=== PATIENT | male | born 1940 | race Caucasian/White ===

== ENCOUNTER 2017-01-19 08:51 | Emergency (ER) | payer OTHER ==
[2017-01-19 08:56] VITALS: BP 125/89; TEMP 97.2; BMI 45.4
[2017-01-19] MEDS ORDERED: DILAUDID 1 MG/ML SYRINGE IM STA (09:13)
--- NOTE | 2017-01-19 09:58 | CT ---
EXAM: CT Pelvis without contrast. HISTORY: Initial presentation for right hip and low back pain following a fall. COMPARISON: None available. TECHNIQUE: Multiple axial images of the pelvis were obtained without intravenous contrast. Images were reformatted in the coronal and sagittal plane. FINDINGS: Please note that evaluation of the pelvic soft tissue structures is limited due to lack o f intravenous contrast. Bone mineralization is normal. No fracture or dislocation identified. 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 Lower lumbar degenerative changes are incompletely imaged. Refer to lum bar spine CT report from the same day for details. Adjacent soft tissues are without acute abnormal ity. Atherosclerotic calcifications are present. IMPRESSION: No fracture or dislocation.
--- NOTE | 2017-01-19 10:03 | CT ---
EXAM: CT lumbar spine without contrast. HISTORY: Fall with back pain and reported history of lumbar surgery. COMPARISON: CT lumbar spine 04/04/2016 TECHNIQUE: Serial axial images of the spine were obtained from the lower thoracic spine through the pelvis without contrast. These were viewed in multiple planes. FINDINGS: Vertebral bodies demonstrate no acute compression fracture. No definitive subluxation is identified. There is multilevel disc space narrowing with anterior and posterior disc osteophytes. There is scattered facet arthropathy identified. The posterior and transverse processes are unrem arkable. A right hemilaminectomy changes are noted at L4 and L5. L1-L2: There is a small broad-based disc bulge and facet arthropathy. There is no significant centr al or neural foraminal narrowing. L2-L3: Posterior disc osteophyte and facet arthropathy with broad-based disc bulge contributing to b ilateral mild neural foraminal narrowing. L3-L4: There is a broad-based disc bulge and scattered facet arthropathy with mild right neural fora gianna narrowing. L4-L5: There is broad-based disc bulge and facet arthropathy contributing to moderate right neural f oraminal narrowing. L5-S1: There is a broad-based disc bulge and facet arthropathy contributing to bilateral moderate to severe neural foraminal narrowing. Limited views of the soft tissues are unremarkable. IMPRESSION: 1. No acute compression fracture or subluxation. 2. Multilevel degenerative disease and postsurgical changes with a level by level analysis as above . If further evaluation is clinically indicated, MRI may be obtained.
--- NOTE | 2017-01-19 11:24 | ED.PDOC ---
General ED Provider: Dr. ARMAAN CERDA Chief Complaint: Fall Stated Complaint: back and hip pain Time Seen by Physician: 09:00 Mode of Arrival: Walk-In Information Source: Patient Exam Limitations: No limitations Primary Care Provider: SUKHWINDER STOUT Nursing and Triage Documentation Reviewed and Agree: Yes Musculoskeletal Complaint Exam - Back Pain Complaint/Exam Mechanism of Injury: Reports: No known trauma Onset/Duration: this am Symptoms Are: Still present Initial Severity: Mild Current Severity: Mild Location: Reports: Discrete Character: Reports: Dull, Aching Alleviating: Reports: None Associated Signs and Symptoms: Denies: Swelling, Redness, Bruising, Fever, Weakness, Numbness, Tingling, Abdominal pain, Flank pain, Bladder incontinence, Bowel incontinence, Weight loss, Pain with weight bearing Related History: Reports: Similar episode Review of Systems - Review Of Systems Constitutional: Reports: No symptoms Eyes: Reports: No symptoms Ears, Nose, Mouth, Throat: Reports: No symptoms Respiratory: Reports: No symptoms Cardiac: Reports: No symptoms GI: Reports: No symptoms : Reports: No symptoms Musculoskeletal: Reports: Back pain Skin: Reports: No symptoms Neurological: Reports: No symptoms Endocrine: Reports: No symptoms Hematologic/Lymphatic: Reports: No symptoms All Other Systems: Reviewed and Negative Past Medical History - Past Medical History Endocrine: Reports: None Cardiovascular: Reports: OK, Hypertension Respiratory: Reports: None Hematological: Reports: None Gastrointestinal: Reports: GERD Genitourinary: Reports: None Neuro/Psych: Reports: TIA (states was spine disease not a tia) Musculoskeletal: Reports: Arthritis, Back Pain Cancer: Reports: None Other Pertinent Past Medical History: sleep apnea - Surgical History General Surgical History: Reports: Orthopedic (right arm bilateral knees), Back Surgery (back and neck surgery) - Family History Family History: Reports: Unknown - Social History Smoking Status: Never smoker Hx Substance Use: No Alcohol Screening: None Physical Exam - Physical Exam Appearance: Well-appearing, No pain distress, Well-nourished Eyes: ADEBAYO, EOMI, Conjunctiva clear ENT: Ears normal, Nose normal, Oropharynx normal Respiratory: Airway patent, Breath sounds clear, Breath sounds equal, Respirations nonlabored Cardiovascular: RRR, Pulses normal, No rub, No murmur GI/: Soft, Nontender, No masses, Bowel sounds normal, No Organomegaly Musculoskeletal: Normal strength, ROM intact, No edema, No calf tenderness Skin: Warm, Dry, Normal color Neurological: Sensation intact, Motor intact, Reflexes intact, Cranial nerves intact, Alert, Oriented Psychiatric: Affect appropriate, Mood appropriate Interpretation - Radiology Interpretation Radiology Interpretation By: Radiologist Radiology Results: No acute changes Critical Care Note - Critical Care Note Total Time (mins): 0 Course - Course Orders, Labs, Meds: Orders Category Date Time Status Hydromorphone HCl [Dilaudid 1 mg/ml Syringe] MEDS 01/19/17 09:13 Discontinued 0.5 mg IM ONCE STA CT LUMBAR SPINE W/O CONTRAST Stat RADS 01/19/17 09:[address] PELVIS W/O CONTRAST Stat RADS 01/19/17 09:12 Completed Medications Discontinued Medications Generic Name Dose Route Start Last Admin Trade Name Barbra PRN Reason Stop Dose Admin Hydromorphone HCl 0.5 mg 01/19/17 09:13 01/19/17 09:20 Dilaudid 1 Mg/Ml Syringe IM 01/19/17 09:14 0.5 mg ONCE STA Administration Vital Signs: Temp Pulse Resp BP Pulse Ox 01/19/17 08:53 97.2 F L 87 20 125/89 94 L Departure - Departure Time of Disposition: 11:23 Disposition: HOME SELF-CARE Discharge Problem: Back pain Qualifiers: Back pain location: low back pain Back pain laterality: unspecified Instructions: Acute Low Back Pain (ED) Condition: Good Pt referred to PMD for follow-up: No Additional Instructions: Please call your Family Physician as soon as possible to schedule a follow-up appointment. Allergies/Adverse Reactions: Allergies No Known Allergies Allergy (Unverified 01/19/17 08:57) Home Medications: Ambulatory Orders Losartan/Hydrochlorothiazide [Losartan-Hctz 100-25 mg Tab] 1 tab PO DAILY Rivaroxaban [Xarelto] 20 mg PO BEDTIME 08/15/13 Sotalol HCl [Sotalol] 40 mg PO DAILY 08/15/13 Disposition Discussed With: Patient
== END 2017-01-19 12:00 | disposition home or self-care (01) ==
LOC: ED 08:51
DX: M54.5 Low back pain (principal); M25.559 Pain in unspecified hip; W19.XXXA Unspecified fall, initial encounter
CPT/HCPCS: 96372; 99283

== ENCOUNTER 2017-11-02 10:42 | Inpatient (IN) | payer OTHER ==
[2017-11-02] MEDS ORDERED: MORPHINE 4 MG/ML VIAL IVP PRN (11:04)
[2017-11-02] MEDS ORDERED: TYLENOL PO PRN (11:04)
[2017-11-02] MEDS ORDERED: VISTARIL INJ IM PRN (11:04)
[2017-11-02] MEDS ORDERED: ATROPINE SULFATE PFS IVP PRN (11:04)
[2017-11-02] MEDS ORDERED: NITROSTAT SL PRN (11:04)
[2017-11-02] MEDS: XOPENEX 1.25 MG NEB SCH ×3 (11:28→22:48)
[2017-11-02] MEDS ORDERED: SODIUM CHLORIDE 1,000 ML IV SCH (11:30)
[2017-11-02 11:42] VITALS: BMI 47.7
[2017-11-02] MEDS: ZITHROMAX PO SCH (12:03)
[2017-11-02] MEDS: ROCEPHIN 1 GM in SODIUM CHLORIDE 50 ML IV SCH (12:04)
[2017-11-02] MEDS: SOLU-CORTEF 250 MG IVP SCH ×3 (12:04→23:57)
--- NOTE | 2017-11-02 14:39 | DI ---
EXAM: CHEST FRONTAL AND LATERAL VIEWS HISTORY: Shortness of breath. COMPARISON: 08/15/2013 FINDINGS: Prominent heart size is stable. There is at least mild atherosclerotic disease. No acute infiltrates are seen. No vascular congestion. There is no consolidation, visible pleural fluid or p neumothorax. Bones reveal no acute fracture. IMPRESSION: No acute cardiopulmonary process.
[2017-11-02] MEDS: TAMIFLU PO SCH ×2 (15:05→20:57)
[2017-11-02] MEDS: XARELTO PO SCH (17:01)
[2017-11-02] MEDS: HUMULIN R SUBCUT PRN ×2 (17:37→21:40)
[2017-11-02] MEDS ORDERED: NON-FORMULARY MEDICATION (Rivaroxaban [Xarelto] 20 MG) PO SCH (21:00)
[2017-11-03] MEDS: XOPENEX 1.25 MG NEB SCH ×4 (05:02→23:45)
[2017-11-03] MEDS: SOLU-CORTEF 250 MG IVP SCH ×3 (05:25→21:32)
[2017-11-03] MEDS ORDERED: NON-FORMULARY MEDICATION (Losartan/Hydrochlorothiazide [Losartan-Hctz 100-25 Mg Tab] 1 TAB PO SCH (09:00)
[2017-11-03] MEDS: BETAPACE PO SCH (10:09)
[2017-11-03] MEDS: HYDROCHLOROTHIAZIDE PO SCH (10:11)
[2017-11-03] MEDS: COZAAR PO SCH (10:11)
[2017-11-03] MEDS: TAMIFLU PO SCH ×2 (10:12→21:33)
[2017-11-03] MEDS: ZITHROMAX PO SCH (10:12)
[2017-11-03] MEDS: ASPIRIN EC PO SCH (10:13)
[2017-11-03] MEDS: ROCEPHIN 1 GM in SODIUM CHLORIDE 50 ML IV SCH (10:13)
--- NOTE | 2017-11-03 10:26 | HP ---
DATE OF SERVICE: 11/02/17 HISTORY OF PRESENT ILLNESS: This is a 77-year-old male who started coughing/wheezing yesterday. He was aching all over last night, hurting all over. Short of breath since yesterday. He states he was coughing 2 to 3 days before. PAST MEDICAL HISTORY: Diabetes mellitus type 2 Right sciatica Atrial fibrillation Obesity Metabolic syndrome LVH/hypertension Dyslipidemia Sleep apnea PAST SURGICAL HISTORY: Bilateral total knee replacement, Dr. Arias Stents Colonoscopy - scheduled 11/19/17 for appointment REVIEW OF SYSTEMS: CONSTITUTIONAL: Positive for fever and fatigue. HEENT: Sinus drainage. No sore throat. RESPIRATORY: Cough and congestion. CARDIOVASCULAR: Pain with breathing. Shortness of breath. No atypical chest pain for coronary artery disease. No angina, CHF symptoms, or palpitations. GASTROINTESTINAL: No melena or abdominal pain. No GERD. GENITOURINARY: No hematuria, no prostatism, no polyuria. BROWN STOCK WASHER: No blackout, no dizziness, no headache, no double vision. MUSCULOSKELETAL: Osteoarthritis pain. ENDOCRINE: Positive for weight gain of 2 lbs. SKIN: Not dry, no rash. PSYCHIATRIC: Not anxious, no depression, no suicidal thoughts, no homicidal thoughts. SOCIAL HISTORY: . Nonsmoker. No alcohol use. Three children. Occupation is a travel counselor. FAMILY HISTORY: Father . Mother . No brothers. One sister. MEDICATIONS: Losartan/HCTZ 100-25 mg Sotalol 80 mg 0.5 tablet 1/2 by oral route one time per day Cortisone cream apply thin layer to affected area topically two times per day Xarelto 20 mg one tablet p.o. once daily with the evening meal Tylenol 325 mg take 2 tablets p.o. every 12 hours as needed p.r.n. Vitamins one time per day Fish Oil Garlic ALLERGIES: TEQUIN, PRAVACHOL, CRESTOR, LIPITOR, VYTORIN, NIASPAN, SIMVASTATIN PHYSICAL EXAMINATION: V/S: Pulse 60, BP 120/70, temperature 100.2, 02 sat 95%, weight 303.8 lbs. Height 5'6", BMI 49.1. GENERAL APPEARANCE: Oriented times three. HEENT: Yellow drainage. NECK: No JVP, no bruits. RESPIRATORY: Lungs have decreased breath sounds, inspiratory and expiratory wheezing, CARDIOVASCULAR: Irregular heart rate. S1, S2, no S3, no murmurs. No cyanosis, clubbing. No ascites. GI/ABDOMEN: No tenderness. Bowel sounds are active. EXTREMITIES: Trace edema, pulses +1, equal. BROWN STOCK WASHER: Deep tendon reflexes, sensory, motor and gait all normal. RECTAL/PROSTATE: .Prostate 04/23 (0.7). Colonoscopy 2009 Dr. Verde. LABS: White count 6.06, hemoglobin 15.5, hematocrit 45.8, platelets 176. Sodium 137, potassium 4.1, BUN 9, creatinine 0.99, GFR 74, AST 48, ALT 39, total protein 7.6 , albumin 3.5. Rapid flu B is positive. Chest x-ray shows no acute process. ASSESSMENT: 1. ACUTE PNEUMONITIS 2. SHORTNESS OF BREATH 3. PLEURITIC PAIN ON LEFT. 4. DIABETES MELLITUS TYPE 2 5. RIGHT SCIATICA 6. ATRIAL FIBRILLATION 7. OBESITY 8. BILATERAL TOTAL KNEE REPLACEMENT, DR. ARIAS 9. METABOLIC SYNDROME 10. CAD WITH STENTS 11. LVH/HYPERTENSION 12. DYSLIPIDEMIA 13. SLEEP APNEA PLAN: 1. Admit 2. Routine telemetry orders 3. NS @ 75 cc/hr times one bag 4. Tylenol for fever 650 mg .q.4h 5. CBC, CMP now and daily 6. Chest x-ray now 7. Rapid flu A & B 8. Rocephin 1 gm IV daily 9. Zithromax 500 mg p.o. daily times three days 10. Solu-Cortef 125 mg q.6h IV scheduled 11. Xopenex q.6h scheduled 12. Sliding scale coverage 13. 02 1-2L p.r.n. 14. Continue home medications TIME SPENT: More than 70 minutes. MTDD
--- NOTE | 2017-11-03 11:40 | PCM.PROG ---
Attending Provider: ATTENDING PROVIDER: Dr. SUKHWINDER STOUT This patient is seen with Allyson Newby, Nurse Practitioner. DATE OF SERVICE: 11/03/17 SUBJECTIVE: This 77 year old WHITE/ M was hospitalized 11/02/17. The patient is lying in bed, alert. He states he did not sleep very well last night. Wheezing has improved. REVIEW OF SYSTEMS: CONSTITUTIONAL: No night sweats. No fatigue, malaise, lethargy. No fever or chills. HEENT: Eyes: No visual changes. No eye pain. No eye discharge. ENT: No runny nose. No epistaxis. No sinus pain. No odynophagia. No congestion. RESPIRATORY: Cough and wheezing improving. No hemoptysis. No shortness of breath. CARDIOVASCULAR: No angina symptoms. No CHF symptoms. No atypical chest pain for CAD. No palpitations. No orthopnea.. GASTROINTESTINAL: No abdominal pain. No nausea or vomiting. No diarrhea or constipation. No hematemesis. No hematochezia. GENITOURINARY: No urgency. No frequency. No dysuria. No hematuria. No obstructive symptoms. No discharge. No pain. No significant abnormal bleeding. MUSCULOSKELETAL: No musculoskeletal pain; no joint swelling. NEUROLOGICAL: Awake, alert, oriented to time, place and person. No headache. No neck pain. No syncope. No seizures. No dizziness. PSYCHIATRIC: Not anxious. No depression. No suicidal thoughts. No homicidal thoughts. SKIN: No rash. No lesions. No wounds. ENDOCRINE: No unexplained weight loss. No weight gain. HEMATOLOGIC/LYMPHATIC: No anemia. No purpura. No petechiae. No prolonged or excessive bleeding. No palpable lymph nodes. PHYSICAL EXAMINATION: GENERAL: The patient is awake, alert and oriented, lying in bed in no distress. VITAL SIGNS: Temperature 98.4 F, Pulse 82, Respiratory Rate 16, BP 150/90, Pulse Ox 97% HEENT: Head normocephalic, atraumatic. Eyes: Extraocular muscles are intact. Pupils are equal, round and reactive to light and accommodation. Ears: No lesions. Nose appeared normal. Throat: No exudate or erythema. NECK: Supple. No JVD, no carotid bruit. No lymphadenopathy or thyromegaly. LUNGS: Diminished breath sounds bilaterally, improving bilateral wheeze. Percussion note normal. Chest symmetrical. HEART: Irregular heart rate. S1, S2, no S3. No murmurs. No cyanosis or clubbing. No ascites. Pulses: Dorsalis pedis and posterior tibial pulses +1 to +2 both sides. ABDOMEN: Soft. Non-tender. Bowel sounds active. No CVA tenderness. No mass felt. EXTREMITIES: No edema. Full range of motion of all extremities, equal. NEUROLOGIC: No focal deficit. Cranial nerves II through XII are grossly intact. No headache, no double vision or headache. SKIN: Not dry. Intact. Turgor-normal. LYMPHATIC: No palpable lymph nodes/no lymphedema. MUSCULOSKELETAL: Normal joints with no swelling. Muscle tone is normal. LAB REVIEW: 11/03/17 04:30 11/03/17 04:30 11/03/17 04:30: Sodium 137, Potassium 4.8, Chloride 102, Carbon Dioxide 22 L, Anion Gap 17.8, BUN 11, Creatinine 0.93, Estimated GFR (MDRD) 79.00, BUN/ Creatinine Ratio 11.82, Glucose 138 H, Calcium 9.0, Total Bilirubin 0.6, AST 73 H D, ALT 43, Alkaline Phosphatase 42 L, Total Protein 8.4 H, Albumin 3.3 L, Globulin 5.1, Albumin/Globulin Ratio 0.65 11/03/17 04:30: WBC 4.88, RBC 4.91, Hgb 15.3, Hct 45.2, MCV 92.1, MCH 31.2 H, MCHC 33.8, RDW Coeff of Mariajose 12.9, Plt Count 169, Immature Gran % (Auto) 0.4, Neut % (Auto) 73.4, Lymph % (Auto) 17.4, [place] % (Auto) 8.6, Eos % (Auto) 0.0, Baso % (Auto) 0.2, Immature Gran # (Auto) 0.0, Neut # (Auto) 3.6, Lymph # (Auto ) 0.9, [place] # (Auto) 0.4, Eos # (Auto) 0.0, Baso # (Auto) 0.0 11/02/17 19:24: Total Creatine Kinase 401, CK-MB (CK-2) 1.6, CK-MB (CK-2) % 0.70004, Troponin I < 0.0100 11/02/17 15:00: Urine Color Yellow, Urine Clarity Clear, Urine pH 6.0, Ur Specific [place] 1.010, Urine Protein Negative, Urine Glucose (UA) Negative, Urine Ketones Negative, Urine Blood Trace-intact, Urine Nitrite Negative, Urine Bilirubin Negative, Urine Urobilinogen 0.2, Ur Leukocyte Esterase Negative, Urine Microscopic RBC 0-2, Ur Squamous Epith Cells Not present 11/02/17 12:15: Influ A Molecular Assay Negative by naat, Influ B Molecular Assay Positive by naat H 11/02/17 11:25: Total Creatine Kinase 307, CK-MB (CK-2) 1.3, CK-MB (CK-2) % 0.43090, Troponin I < 0.0100 11/02/17 11:25: Sodium 137, Potassium 4.1, Chloride 101, Carbon Dioxide 25, Anion Gap 15.1, BUN 9, Creatinine 0.99, Estimated GFR (MDRD) 74.00, BUN/ Creatinine Ratio 9.09, Glucose 98, Calcium 9.5, Total Bilirubin 0.9, AST 48 H, ALT 39, Alkaline Phosphatase 50 L, Total Protein 7.6, Albumin 3.5, Globulin 4.1 , Albumin/Globulin Ratio 0.85 11/02/17 11:25: WBC 6.06, RBC 4.95, Hgb 15.5, Hct 45.8, MCV 92.5, MCH 31.3 H, MCHC 33.8, RDW Coeff of Mariajose 13.0, Plt Count 176, Immature Gran % (Auto) 0.5, Neut % (Auto) 59.1, Lymph % (Auto) 17.2, [place] % (Auto) 20.1 H, Eos % (Auto) 1.8 , Baso % (Auto) 1.3, Immature Gran # (Auto) 0.0, Neut # (Auto) 3.6, Lymph # ( Auto) 1.0, [place] # (Auto) 1.2, Eos # (Auto) 0.1, Baso # (Auto) 0.1 ASSESSMENT: Please see below. 1. Flu B 2. Acute bronchitis 3. Shortness of breath improved 4. Pleuritic pain PLAN: 1. Decrease Solu-Cortef to q.8hr 2. Ativan 1 mg at bedtime 3. Tussionex one teaspoon b.i.d. p.r.n. 4. Continue Xopenex, Tamiflu, Zithromax and Rocephin Plan and coordination of the patient's care discussed in the presence of Product Scientist and nurse. CONDITION: Stable SCRIBED BY: MAGDI COFFMAN Distributing Clerk scribed while in presence of service performed by Dr. Stout/Allyson Newby APRN on 11/03/17 ([id number])
[2017-11-03] MEDS: HUMULIN R SUBCUT PRN ×2 (12:21→21:33)
[2017-11-03] MEDS: XARELTO PO SCH (17:31)
[2017-11-03] MEDS: ATIVAN PO SCH (21:32)
[2017-11-04] MEDS: XOPENEX 1.25 MG NEB SCH ×3 (05:00→17:04)
[2017-11-04] MEDS: HUMULIN R SUBCUT PRN ×2 (05:35→10:48)
[2017-11-04] MEDS: SOLU-CORTEF 250 MG IVP SCH ×3 (05:35→21:28)
[2017-11-04] MEDS: ROCEPHIN 1 GM in SODIUM CHLORIDE 50 ML IV SCH (09:10)
[2017-11-04] MEDS: ASPIRIN EC PO SCH (09:11)
[2017-11-04] MEDS: TAMIFLU PO SCH ×2 (09:11→21:28)
[2017-11-04] MEDS: HYDROCHLOROTHIAZIDE PO SCH (09:11)
[2017-11-04] MEDS: COZAAR PO SCH (09:11)
[2017-11-04] MEDS: ZITHROMAX PO SCH (09:11)
[2017-11-04] MEDS: BETAPACE PO SCH (09:11)
[2017-11-04] MEDS: XARELTO PO SCH (17:43)
[2017-11-04] MEDS: ATIVAN PO SCH (21:28)
[2017-11-04] MEDS: TUSSIONEX PO PRN (21:33)
[2017-11-05] MEDS: SOLU-CORTEF 250 MG IVP SCH ×3 (04:08→20:15)
[2017-11-05] MEDS: XOPENEX 1.25 MG NEB SCH ×5 (06:00→23:30)
[2017-11-05] MEDS: ASPIRIN EC PO SCH (08:26)
[2017-11-05] MEDS: ROCEPHIN 1 GM in SODIUM CHLORIDE 50 ML IV SCH (08:26)
[2017-11-05] MEDS: HYDROCHLOROTHIAZIDE PO SCH (08:26)
[2017-11-05] MEDS: COZAAR PO SCH (08:27)
[2017-11-05] MEDS: TAMIFLU PO SCH ×2 (08:27→20:16)
[2017-11-05] MEDS: BETAPACE PO SCH (08:27)
[2017-11-05] MEDS: HUMULIN R SUBCUT PRN ×2 (11:28→20:16)
[2017-11-05] MEDS: XARELTO PO SCH (16:38)
[2017-11-05] MEDS: ATIVAN PO SCH (20:16)
[2017-11-05] MEDS: KEFLEX PO SCH (20:16)
[2017-11-05] MEDS: TUSSIONEX PO PRN (20:18)
[2017-11-06] MEDS: SOLU-CORTEF 250 MG IVP SCH ×2 (04:32→13:22)
[2017-11-06] MEDS: XOPENEX 1.25 MG NEB SCH ×2 (05:35→12:49)
[2017-11-06] MEDS: KEFLEX PO SCH (09:34)
[2017-11-06] MEDS: COZAAR PO SCH (09:34)
[2017-11-06] MEDS: BETAPACE PO SCH (09:34)
[2017-11-06] MEDS: HYDROCHLOROTHIAZIDE PO SCH (09:35)
[2017-11-06] MEDS: ASPIRIN EC PO SCH (09:35)
[2017-11-06] MEDS: TAMIFLU PO SCH (09:35)
[2017-11-06] MEDS ORDERED: K-DUR PO STA ×2 (10:08→13:49)
[2017-11-06 10:19] VITALS: BP 147/77; TEMP 97.6
--- NOTE | 2017-11-06 11:20 | PN ---
DATE OF SERVICE: 11/04/17 SUBJECTIVE: 77 year old white male hospitalized with acute pneumonitis/bronchitis, Influenza B positive. The patient's condition seems to be improving. He is coughing much less. Strength is coming back but still weak and mildly short of breath. Pleuritic pain has subsided. The is in the room. REVIEW OF SYSTEMS: CONSTITUTIONAL: No night sweats. No fatigue, malaise, lethargy. No fever or chills. HEENT: Eyes: No visual changes. No eye pain. No eye discharge. ENT: No runny nose. No epistaxis. No sinus pain. No sore throat. No odynophagia. No congestion. RESPIRATORY: No cough, no congestion. No hemoptysis. Mild shortness of breath. CARDIOVASCULAR: No angina symptoms. No CHF symptoms. No atypical chest pain for CAD. No palpitations. No orthopnea. No PND. GASTROINTESTINAL: No abdominal pain. No nausea or vomiting. No diarrhea or constipation. No hematemesis. No hematochezia. Appetite has improved. GENITOURINARY: No urgency. No frequency. No dysuria. No hematuria. No obstructive symptoms. No discharge. No pain. No significant abnormal bleeding. MUSCULOSKELETAL: No musculoskeletal pain; no joint swelling. NEUROLOGICAL: No headache. No neck pain. No syncope. No seizures. No dizziness. PSYCHIATRIC: Not anxious. No depression. No suicidal thoughts. No homicidal thoughts. SKIN: No rash. No lesions. No wounds. ENDOCRINE: No unexplained weight loss. No weight gain. HEMATOLOGIC/LYMPHATIC: No anemia. No purpura. No petechiae. No prolonged or excessive bleeding. No palpable lymph nodes. PHYSICAL EXAMINATION: VITAL SIGNS: Temperature 97.5, pulse 74, respiratory rate 14, blood pressure 120/80 and pulse ox 99%. HEENT: Head normocephalic, atraumatic. Eyes: Extraocular muscles are intact. Pupils are equal, round and reactive to light and accommodation. Ears: No lesions. Nose appeared normal. Throat: No exudate or erythema. NECK: Supple. No JVD, no carotid bruit. No lymphadenopathy or thyromegaly. LUNGS: Decreased breath sounds with mild wheeze. Clear to auscultation. Percussion note normal. Chest symmetrical. HEART: S1, S2, no S3. No murmurs. No cyanosis or clubbing. No ascites. Pulses: Dorsalis pedis and posterior tibial pulses +1 to +2 both sides. ABDOMEN: Soft. Nontender. Bowel sounds active. No CVA tenderness. No mass felt. EXTREMITIES: No edema. Full range of motion of all extremities, equal. NEUROLOGIC: No focal deficit. Cranial nerves II through XII are grossly intact. No headache, no double vision or headache. SKIN: Not dry. Intact. Turgor - normal. LYMPHATIC: No palpable lymph nodes/no lymphedema. MUSCULOSKELETAL: Normal joints with no swelling. Muscle tone is normal. LABS: Hgb 14.8, hct 43, WBC 11,000 normal differential. ASSESSMENT: 1. Pneumonitis/bronchitis seems to be resolving 2. Influenza B seems to be under control 3. Pleuritic pain subsided 4. Coronary artery disease with stable cardiovascular status. PLAN: 1. Continue antibiotics, steroids and NEBS treatment 2. Encourage the patient to be up and about CONDITION: Improving TIME SPENT: More than 30 minutes. Plan and coordination of the patient's care discussed in the presence of nurse. ZHEN
--- NOTE | 2017-11-06 11:27 | PN ---
DATE OF SERVICE: 11/05/17 SUBJECTIVE: 77 year old white male hospitalized with acute pneumonitis/bronchitis and influenza B positive and with pleuritic pain. The patient's overall health status has improved. REVIEW OF SYSTEMS: CONSTITUTIONAL: No night sweats. Mild fatigue and weakness. No fever or chills. HEENT: Eyes: No visual changes. No eye pain. No eye discharge. ENT: No runny nose. No epistaxis. No sinus pain. No sore throat. No odynophagia. No congestion. RESPIRATORY: No cough, no congestion. No hemoptysis. No shortness of breath. CARDIOVASCULAR: No angina symptoms. No CHF symptoms. No atypical chest pain for CAD. No palpitations. No orthopnea. GASTROINTESTINAL: No abdominal pain. No nausea or vomiting. No diarrhea or constipation. No hematemesis. No hematochezia. GENITOURINARY: No urgency. No frequency. No dysuria. No hematuria. No obstructive symptoms. No discharge. No pain. No significant abnormal bleeding. MUSCULOSKELETAL: No musculoskeletal pain; no joint swelling. NEUROLOGICAL: No headache. No neck pain. No syncope. No seizures. No dizziness. PSYCHIATRIC: Not anxious. No depression. No suicidal thoughts. No homicidal thoughts. SKIN: No rash. No lesions. No wounds. ENDOCRINE: No unexplained weight loss. No weight gain. HEMATOLOGIC/LYMPHATIC: No anemia. No purpura. No petechiae. No prolonged or excessive bleeding. No palpable lymph nodes. PHYSICAL EXAMINATION: VITAL SIGNS: Temperature 97.5, pulse 74, respiratory rate 14, blood pressure 120/80 and pulse ox 99%. HEENT: Head normocephalic, atraumatic. Eyes: Extraocular muscles are intact. Pupils are equal, round and reactive to light and accommodation. Ears: No lesions. Nose appeared normal. Throat: No exudate or erythema. NECK: Supple. No JVD, no carotid bruit. No lymphadenopathy or thyromegaly. LUNGS: Decreased breath sounds with more air entry. Clear to auscultation. Percussion note normal. Chest symmetrical. HEART: S1, S2, no S3. No murmurs. No cyanosis or clubbing. No ascites. Pulses: Dorsalis pedis and posterior tibial pulses +1 to +2 both sides. Increased Ap diameter from middle of the chest. ABDOMEN: Soft. Nontender. Bowel sounds active. No CVA tenderness. No mass felt. EXTREMITIES: No edema. Full range of motion of all extremities, equal. NEUROLOGIC: No focal deficit. Cranial nerves II through XII are grossly intact. No headache, no double vision or headache. SKIN: Not dry. Intact. Turgor - normal. LYMPHATIC: No palpable lymph nodes/no lymphedema. MUSCULOSKELETAL: Normal joints with no swelling. Muscle tone is normal. LABS: Creatinine 0.8, BUN 17, potassium 3.6, glucose 130. ASSESSMENT: 1. Pneumonitis 2. Influenza B 3. Dehydration 4. Pleuritic pain PLAN: 1. The patient is up and about 2. Continue antibiotics, steroids and NEBS treatment CONDITION: Improved TIME SPENT: More than 30 minutes. Plan and coordination of the patient's care discussed in the presence of nurse. ZHEN
--- NOTE | 2017-11-06 11:40 | CM.DICTOOL ---
ADMISSION: 11/02/17 10:42 DISCHARGE: 11/06/17 FINAL DIAGNOSIS INFLUENZA B BRONCHITIS - IMPROVED/RESOLVING PLEURITIC PAIN, LEFT - IMPROVED/RESOLVING PNEUMONITIS - IMPROVED/RESOLVING HISTORY OF: HYPERTENSION ATRIAL FIBRILLATION, ON XARELTO DYSLIPIDEMIA DM, TYPE 2 OBESITY METABOLIC SYNDROME CAD WITH STENT APPLICATION SLEEP APNEA, C-PAP S/P BILATERAL KNEE REPLACEMENT DATES UNKNOWN S/P CARDIAC STENTS DATE UNKNOWN RIGHT SCIATICA LAST VITALS Temp Pulse Resp BP Pulse Ox 97.6 F 98 H 20 147/77 H 97 11/06/17 10:00 11/06/17 10:00 11/06/17 10:00 11/06/17 10:00 11/06/17 10:00 TAKE THESE MEDICATIONS AT HOME Acetaminophen (Tylenol) 650 mg PO Q4H PRN PRN Reason: Headache Cephalexin (Keflex) 500 mg PO TID [facility] X 7 DAYS Last Admin: 11/06/17 09:34 Dose: 500 mg Hydrochlorothiazide (Hydrochlorothiazide) 25 mg PO DAILY [facility] Last Admin: 11/06/17 09:35 Dose: 25 mg Lorazepam (Ativan) 1 mg PO BEDTIME [facility] Last Admin: 11/05/17 20:16 Dose: 1 mg Losartan Potassium (Cozaar) 100 mg PO DAILY [facility] Last Admin: 11/06/17 09:34 Dose: 100 mg Oseltamivir Phosphate (Tamiflu) 75 mg PO Q12HR [facility] Stop: 11/06/17 21:01 Last Admin: 11/06/17 09:35 Dose: 75 mg Rivaroxaban (Xarelto) 20 mg PO QPM [facility] Last Admin: 11/05/17 16:38 Dose: 20 mg Sotalol HCl (Betapace) 40 mg PO DAILY [facility] Last Admin: 11/06/17 09:34 Dose: 40 mg ATIVAN 1MG AT BEDTIME ALBUTEROL NEBS 1 TREATMENT QID TESSALON PERLES 200MG TAKE 1 PO TID PRN X 7 DAYS PREDNISONE 10MG TAKE 1 PO BID X 5 DAYS,THEN 1/2 TAB BID X 5 DAYS ALLERGIES No Known Allergies Allergy (Unverified 01/19/17 08:57) DISCONTINUED MEDICATIONS: NONE NEW PRESCRIPTIONS: NEW MEDICATIONS: 1. TAMIFLU 75MG TAKE 1 TABLET 2 TIMES A DAY FOR 3 DAYS 2. ALBUTEROL 0.083% TAKE 1 NEBULIZER TREATMENT 4 TIMES A DAY. 3.TESSALON PERLES 200MG TAKE 1 CAPSULE 3 TIMES A DAY NEEDED FOR COUGH. 4. PREDNISONE 10MG TAKE 1 TABLET 2 TIMES A DAY FOR 5 DAYS THEN 1/2 TABLET 2 TIMES A DAY FOR 5 DAYS. TAKE WITH FOOD. 5. KEFLEX 500MG TAKE 1 CAPSULE TID FOR 7 DAYS. TAKE UNTIL ALL GONE. 6. ATIVAN 1MG TAKE 1 TABLET AT BEDTIME SMOKING: N/A DISEASE SPECIFIC EDUCATION: FLU AND PRECAUTIONS BRONCHITIS HOME MEDICATIONS ANTIBIOTIC THERAPY STEROID THERAPY NEBULIZER THERAPY DIET ACTIVITY LAB REVIEW: 11/06/17 04:45 11/06/17 04:45 11/06/17 04:45: Sodium 140, Potassium 3.0 L, Chloride 101, Carbon Dioxide 25, Anion Gap 17.0, BUN 18, Creatinine 0.79, Estimated GFR (MDRD) 96.00, BUN/ Creatinine Ratio 22.78, Glucose 127 H, Calcium 8.4, Total Bilirubin 0.6, AST 53 H, ALT 49, Alkaline Phosphatase 37 L, Total Protein 6.1, Albumin 2.9 L, Globulin 3.2, Albumin/Globulin Ratio 0.91 11/06/17 04:45: WBC 8.10, RBC 4.79, Hgb 14.9, Hct 45.0, MCV 93.9, MCH 31.1 H, MCHC 33.1, RDW Coeff of Mariajose 13.5, Plt Count 175, Neutrophils % (Manual) 76.0 H, Band Neutrophils % 1.0, Lymphocytes % (Manual) 16.0, Monocytes % (Manual) 2.0, Reactive Lymphocytes 5.0, Anisocytosis Not present PLAN: DISCHARGE HOME TODAY. 11/06/17 CONTINUE HOME MEDICATIONS PER NURSING SHEET. NEW MEDICATIONS: 1. TAMIFLU 75MG TAKE 1 TABLET 2 TIMES A DAY FOR 3 DAYS 2. ALBUTEROL 0.083% TAKE 1 NEBULIZER TREATMENT 4 TIMES A DAY. 3.TESSALON PERLES 200MG TAKE 1 CAPSULE 3 TIMES A DAY NEEDED FOR COUGH. 4. PREDNISONE 10MG TAKE 1 TABLET 2 TIMES A DAY FOR 5 DAYS THEN 1/2 TABLET 2 TIMES A DAY FOR 5 DAYS. TAKE WITH FOOD. 5. KEFLEX 500MG TAKE 1 CAPSULE TID FOR 7 DAYS. TAKE UNTIL ALL GONE. 6. ATIVAN 1MG TAKE 1 TABLET AT BEDTIME DIET: 1800 CALORIE ADA CARDIAC DIET. ACTIVITY: GRADUALLY RESUME ACTIVITY. FOLLOW UP WITH DR. STOUT ON MondayNovember AT 1145AM. IF UNABLE TO KEEP APPOINTMENT, PLEASE CALL. [phone]. PATIENT IS A DNR. SITTING UP IN BED. ALERT AND ORIENTED X 4. DR. STOUT INTO SEE PATIENT. PATIENT STATES FEELING BETTER. PLAN OF CARE DISCUSSED PER DR. STOUT INCLUDING DISCHARGE HOME TODAY. PATIENT VERBALIZES UNDERSTANDING AND AGREEMENT. APPETITE IS GOOD. VITAL SIGNS ARE STABLE. HAS BEEN AFEBRILE. POX 97% ON ROOM AIR. HEART TONES ARE IRREGULAR WITH TELEMETRY REVEALING A-FIB/A-FLUTTER AND A-FIB WITH BBB. NO C/O PAIN OR DISCOMFORT. LUNGS CLEAR WITH DIMINISHED BREATH SOUNDS. HAS PRODUCTIVE COUGH OF YELLOW SPUTUM. REMAINS ON DROPLET PRECAUTIONS. ABDOMEN IS SOFT, NON- TENDER WITH BOWEL SOUNDS POSITIVE IN ALL 4 QUADS. LAST BM 11/05/17. PEDAL PULSES POSITIVE WITH NON-PITTING EDEMA TO BLE. BLE ARE ALSO RED AND TIGHT. NO OPEN AREAS. HAS SALINE LOCK IN RIGHT HAND SITE IS CLEAR. IS INDEPENDENT WITH ACTIVITIES OF DAILY LIVING WITH STEADY GAIT. DR. SUKHWINDER STOUT MD Kay TERESA APRN
[2017-11-06] MEDS ORDERED: K-DUR PO ONE (12:00)
[2017-11-06] MEDS: HUMULIN R SUBCUT PRN (13:21)
--- NOTE | 2017-11-06 13:51 | PCM.PROG ---
Attending Provider: ATTENDING PROVIDER: Dr. SUKHWINDER STOUT DATE OF SERVICE: 11/06/17 SUBJECTIVE: This 77 year old WHITE/ M was hospitalized 11/02/17. The patient is hospitalized with acute pneumonitis, pleuritic pain, cough and congestion. The patient had Influenza B. REVIEW OF SYSTEMS: CONSTITUTIONAL: No night sweats. No fatigue, malaise, lethargy. No fever or chills. HEENT: Eyes: No visual changes. No eye pain. No eye discharge. ENT: No runny nose. No epistaxis. No sinus pain. No odynophagia. No congestion. RESPIRATORY: No cough, no congestion. No hemoptysis. No shortness of breath. CARDIOVASCULAR: No angina symptoms. No CHF symptoms. No atypical chest pain for CAD. No palpitations. No orthopnea.. GASTROINTESTINAL: Appetite improved. No abdominal pain. No nausea or vomiting. No diarrhea or constipation. No hematemesis. No hematochezia. GENITOURINARY: No urgency. No frequency. No dysuria. No hematuria. No obstructive symptoms. No discharge. No pain. No significant abnormal bleeding. MUSCULOSKELETAL: No musculoskeletal pain; no joint swelling. NEUROLOGICAL: Awake, alert, oriented to time, place and person. No headache. No neck pain. No syncope. No seizures. No dizziness. PSYCHIATRIC: Not anxious. No depression. No suicidal thoughts. No homicidal thoughts. SKIN: No rash. No lesions. No wounds. ENDOCRINE: No unexplained weight loss. No weight gain. HEMATOLOGIC/LYMPHATIC: No anemia. No purpura. No petechiae. No prolonged or excessive bleeding. No palpable lymph nodes. PHYSICAL EXAMINATION: GENERAL: The patient is awake, alert and oriented, lying in bed in no distress. VITAL SIGNS: Temperature 97.5 F, Pulse 67, Respiratory Rate 16, BP 123/79, Pulse Ox 97% HEENT: Head normocephalic, atraumatic. Eyes: Extraocular muscles are intact. Pupils are equal, round and reactive to light and accommodation. Ears: No lesions. Nose appeared normal. Throat: No exudate or erythema. NECK: Supple. No JVD, no carotid bruit. No lymphadenopathy or thyromegaly. LUNGS: Decreased breath sounds. Clear to auscultation. Percussion note normal. Chest symmetrical. HEART: S1, S2, no S3. No murmurs. No cyanosis or clubbing. No ascites. Pulses: Dorsalis pedis and posterior tibial pulses +1 to +2 both sides. ABDOMEN: Soft. Non-tender. Bowel sounds active. No CVA tenderness. No mass felt. EXTREMITIES: No edema. Full range of motion of all extremities, equal. NEUROLOGIC: No focal deficit. Cranial nerves II through XII are grossly intact. No headache, no double vision or headache. SKIN: Warm and dry. Intact. Turgor-normal. LYMPHATIC: No palpable lymph nodes/no lymphedema. MUSCULOSKELETAL: Normal joints with no swelling. Muscle tone is normal. LAB REVIEW: 11/06/17 04:45 11/06/17 04:45 11/06/17 04:45: Sodium 140, Potassium 3.0 L, Chloride 101, Carbon Dioxide 25, Anion Gap 17.0, BUN 18, Creatinine 0.79, Estimated GFR (MDRD) 96.00, BUN/ Creatinine Ratio 22.78, Glucose 127 H, Calcium 8.4, Total Bilirubin 0.6, AST 53 H, ALT 49, Alkaline Phosphatase 37 L, Total Protein 6.1, Albumin 2.9 L, Globulin 3.2, Albumin/Globulin Ratio 0.91 11/06/17 04:45: WBC 8.10, RBC 4.79, Hgb 14.9, Hct 45.0, MCV 93.9, MCH 31.1 H, MCHC 33.1, RDW Coeff of Mariajose 13.5, Plt Count 175, Neutrophils % (Manual) 76.0 H, Band Neutrophils % 1.0, Lymphocytes % (Manual) 16.0, Monocytes % (Manual) 2.0, Reactive Lymphocytes 5.0, Anisocytosis Not present ASSESSMENT: 1. Acute bronchitis with Influenza B positive 2. Chronic lung disease 3. Coronary artery disease 4. Morbid obesity 5. Hypertension 6. Dyslipidemia PLAN: 1. Potassium for hypokalemia 2. Discharge on antibiotic, steroids and nebs treatment 3. Tussionex 200 mg t.i.d. p.r.n. for cough times 7 days 4. Finish out Tamiflu 5. PFT before discharge 6. Discharge home 7. A face to face discussion with the patient about the need for a nebulizer machine at home to help with breathing. The patient is agreeable. Plan and coordination of the patient's care discussed in the presence of Program Director/Air Personality and nurse. CONDITION: Stable SCRIBED BY: MAGDI COFFMAN Branch Coordinator scribed while in presence of service performed by Dr. SUKHWINDER STOUT on 11/06/17 ([id number])
--- NOTE | 2017-11-07 10:07 | DS ---
DATE OF SERVICE: 11/06/17 FINAL DIAGNOSIS: 1. Influenza B 2. Bronchitis-improved/resolved 3. Pleuritic pain, left-improved/resolved 4. Pneumonitis-improved/resolving 5. History of hypertension 6. Atrial fibrillation, on Xarelto 7. Dyslipidemia 8. Diabetes Mellitus type 2 9. Obesity 10.Metabolic syndrome 11.CAD with stent application 12.Sleep apnea, C-PAP 13.Status post bilateral knee replacement dates unknown 14.Status post cardiac stents date unknown 15.Right sciatica LAST VITALS: Temperature 97.6, pulse 98, respiratory rate 20, blood pressure 147/77 and pulse ox 97%. DISCHARGE INSTRUCTIONS: Discharge home today. Followup with Dr. Jimenez on MondayNovember 13 at 11:45am. The patient is DNR. Continue home medication per nursing sheet. MEDICATIONS AT DISCHARGE: Tylenol 650mg PO Q 4 hours PRN Keflex 500mg PO three times a day x 7 days Hydrochlorothiazide 25mg PO daily Ativan 1mg Po bedtime Cozaar 100mg PO daily Tamiflu 75mg PO Q 12 hours Xarelto 20mg PO QPM Betapace 40mg PO daily Ativan 1mg at bedtime Albuterol NEBS one treatment four times a day Tessalon Perles 200mg take one PO three times a day PRN x 7 days Prednisone 10mg take one PO twice a day times give days, then 1/2 tablet twice a day x 5 days. ALLERGIES: No known allergies NEW PRESCRIPTIONS: Tamiflu 75mg take one tablet two times a day for 3 days Albuterol 0.083% take one nebulizer treatment 4 times a day Tessalon Perles 200mg take one capsule three times a day as needed for cough Prednisone 10mg take one tablet two times a day for 5 days then 1/2 tablet two times a day for 5 days. take with good. Keflex 500mg take one capsule three times a day for 7 days. take until all gone Ativan 1mg take one tablet at bedtime DIET INSTRUCTIONS: 1800 calorie ADA Cardiac diet ACTIVITY: Gradually resume activity SMOKING: N/A DISEASE SPECIFIC EDUCATION: Flu and precautions Bronchitis Home medications Antibiotic therapy Steroid therapy Nebulizer therapy Diet Activity HOSPITAL COURSE: 77 year old white male hospitalized with influenza B positive, acute bronchitis/ pneumonitis with pleuritic pain. The patient was treated in the hospital with Tamiflu and antibiotics Rocephin, Zithromax, steroids and NEBS treatment. The patient's condition improved, his hydration status improved and cardiovascular status throughout the stay in the hospital for normal. He has a PFT done on the day of discharge which is pending. The patient is strongly advised to lose weight, BMI 48 ideal should be 23 plus minus two. Declined any bariatric referral. The patient is intelligent and understands risks factors for coronary artery disease. Advised to bring his Non HDL down to 100 which has been very difficult. The patient was discharged home on antibiotics and steroids to be followed as an outpatient. Avascular necrosis of both femoral heads,cataract, osteoporosis etc discussed about side effects of steroids. TIME SPENT: More than 60 minutes. ROSANNAD
--- NOTE | 2017-11-07 10:26 | PN ---
11/02/17: Level 5 11/03/17: Intermediate 11/04/17: Intermediate 11/05/17: Intermediate 11/06/17: D as in discharge MTDD
== END 2017-11-06 14:30 | disposition home or self-care (01) | DRG 194 ==
LOC: MEDSURG A 10:42
PROVIDERS: ADMIT Internal Medicine; ATTEND Internal Medicine
DX: J10.1 Influenza due to other identified influenza virus with other respiratory manifestations (principal); Z68.42 Body mass index [BMI] 45.0-49.9, adult; J44.0 Chronic obstructive pulmonary disease with (acute) lower respiratory infection; J18.9 Pneumonia, unspecified organism; J20.9 Acute bronchitis, unspecified; R07.81 Pleurodynia; R06.02 Shortness of breath; E86.0 Dehydration; I48.91 Unspecified atrial fibrillation; E11.9 Type 2 diabetes mellitus without complications; I10 Essential (primary) hypertension; I25.10 Atherosclerotic heart disease of native coronary artery without angina pectoris; E66.01 Morbid (severe) obesity due to excess calories; E88.81 Metabolic syndrome and other insulin resistance; E78.5 Hyperlipidemia, unspecified; M54.31 Sciatica, right side; G47.30 Sleep apnea, unspecified; E87.6 Hypokalemia; Z79.01 Long term (current) use of anticoagulants; Z79.899 Other long term (current) drug therapy; Z95.5 Presence of coronary angioplasty implant and graft; Z99.89 Dependence on other enabling machines and devices
CPT/HCPCS: 36415; 80053; 81001; 82550; 82553; 82962; 84484; 85007; 85025; 87502; 93005; 93010; 94640

== ENCOUNTER 2018-02-27 05:54 | Inpatient (IN) ==
--- NOTE | 2018-02-27 06:43 | ED.PDOC ---
General ED Provider: Dr. SHEA APODACA Chief Complaint: Chest Pain Stated Complaint: Patient is a 78 year old male who comes to the ER accompanied by his with with chest pain that started lastnight at 11 pm. He decribes it as sharp and sometimes heavy. Worse with deep breathing better when he sits up. Denies any trauma. Last stress test many years ago ~30. Has a history of atrial fibrillation and is on Eloquis. Time Seen by Physician: 06:20 Mode of Arrival: Walk-In Information Source: Patient, Family Exam Limitations: No limitations Primary Care Provider: SUKHWINDER STOUT Seen Within Last 72 Hours for Same Complaint By: ED Nursing and Triage Documentation Reviewed and Agree: Yes Does patient meet sepsis criteria?: Yes If yes, has appropriate treatment been initiated?: No System Inflammatory Response Syndrome: Pulse >90 BPM, Resp >20/Minute Sepsis Protocol: For patient's 13 years and over: Temp is 96.8 and below OR 101 and greater Pulse >90 BPM Resp >20/minute Acutely Altered Mental Status Are patient's symptoms suggestive of a new infection, such as: -Pneumonia -Skin, Soft Tissue -Endocarditis -UTI -Bone, Joint Infection -Implantable Device -Acute Abdominal Infection -Wound Infection -Meningitis -Blood Stream Catheter Infection -Unknown Cardiovascular Complaint Exam - Chest Pain Complaint/Exam Onset: Sudden Duration: 8 hours Symptoms Are: Still present Timing: Intermittent Initial Severity: Severe (7/10) Current Severity: Moderate (4/10) Location: Reports: Midsternal Pain Radiates: Reports: None Character: Reports: Heaviness, Sharp Aggravating: Reports: Deep breaths Alleviating: Reports: Rest Associated Signs and Symptoms: Denies: Diaphoresis, Nausea, Vomiting, Fever, Palpitations, Cough, Hemoptysis, Back pain, Abdominal pain, Dizziness, Short of air, Calf pain, Calf swelling Related History: Reports: Current ARBs. Denies: Similar episode, Current Jcarlos Inhibitors AMI/ACS Risk Factors: Reports: Myocardial Infarction, Hypertension TAD Risk Factors: Reports: None Pulmonary Embolism Risk Factors: Reports: None Prior Care for this Complaint: No Recent Stress Test: No Recent Echo/LV Function: No JVD Present: No Subcutaneous Emphysema Present: No Diminshed Breath Sounds: No Reproducible Chest Wall Pain: Yes (mid sternal more sharpness with palpation ) Bilateral Pulses Present: Yes Unequal Pulses Noted: No If Risk Factors for AMI/ACS Consider: EKG, Cardiac Enzymes, Aspirin Wireless Technician Consulted: No Differential Diagnoses: Acute NE, Unstable Angina, CHF, Chest Wall Pain, GI Diseasae Quality Indicators For Acute NE or Cardiac Chest Pain: EKG in 10min. Review of Systems - Review Of Systems Constitutional: Reports: No symptoms Eyes: Reports: No symptoms Ears, Nose, Mouth, Throat: Reports: No symptoms Respiratory: Reports: Short of air Cardiac: Reports: Chest pain GI: Reports: No symptoms : Reports: No symptoms Musculoskeletal: Reports: No symptoms Skin: Reports: No symptoms Neurological: Reports: Anxiety Endocrine: Reports: No symptoms Hematologic/Lymphatic: Reports: No symptoms All Other Systems: Reviewed and Negative Past Medical History - Past Medical History Endocrine: Reports: None Cardiovascular: Reports: NE, Hypertension, A-Fib Respiratory: Reports: None Hematological: Reports: None Gastrointestinal: Reports: GERD Genitourinary: Reports: None Neuro/Psych: Reports: TIA (states was spine disease not a tia) Musculoskeletal: Reports: Arthritis, Back Pain Cancer: Reports: None Other Pertinent Past Medical History: sleep apnea - Surgical History General Surgical History: Reports: Orthopedic (right arm bilateral knees), Back Surgery (back and neck surgery) - Family History Family History: Reports: Unknown - Social History Smoking Status: Former smoker Hx Substance Use: No Alcohol Screening: Occasionally - Immunizations Tetanus Shot up to Date: Yes Physical Exam - Physical Exam Appearance: Ill-appearing, Obese Ill-appearing: Mild Pain Distress: Moderate Respiratory: Airway patent, Breath sounds clear, Breath sounds equal, Respirations nonlabored Cardiovascular: Irregular rhythm GI/: Soft, Nontender Musculoskeletal: Edema (2 +) Skin: Warm, Dry Neurological: Sensation intact, Alert, Oriented Psychiatric: Anxious Re-Evaluation - Re-Evaluation Time of Re-Evaluation: 07:18 Status: Improved Pain Level: 0 Physician Notification - Case Discussed Endorsed To/Discussed With: Dr. Catherine Critical Care Note - Critical Care Note Total Time (mins): 30 Course - Course Hematology/Chemistry: 02/28/18 07:04 02/28/18 05:00 Orders, Labs, Meds: Lab Review 02/27/18 02/27/18 02/27/18 07:00 07:00 07:00 WBC 9.54 RBC 5.19 Hgb 16.0 Hct 47.8 MCV 92.1 MCH 30.8 MCHC 33.5 RDW Coeff of Mariajose 12.8 Plt Count 214 Immature Gran % (Auto) 0.2 Neut % (Auto) 74.5 Lymph % (Auto) 14.0 [place] % (Auto) 9.4 Eos % (Auto) 1.2 Baso % (Auto) 0.7 Immature Gran # (Auto) 0.0 Neut # (Auto) 7.1 H Lymph # (Auto) 1.3 [place] # (Auto) 0.9 Eos # (Auto) 0.1 Baso # (Auto) 0.1 D-Dimer (Manual) Puncture Site O2 Saturation ABG pH ABG pCO2 ABG pO2 ABG HCO3 ABG Total CO2 ABG Base Excess Rashaad Test FiO2 % Sodium 139 Potassium 4.2 Chloride 104 Carbon Dioxide 23 Anion Gap 16.2 BUN 13 Creatinine 0.88 Estimated GFR (MDRD) 84.00 BUN/Creatinine Ratio 14.77 Glucose 121 H Lactic Acid 17.2 Calcium 9.6 Total Bilirubin 1.2 AST 31 ALT 25 Alkaline Phosphatase 50 L Total Creatine Kinase 97 Troponin I < 0.0100 Total Protein 7.9 Albumin 3.6 Globulin 4.3 Albumin/Globulin Ratio 0.84 Procalcitonin 02/27/18 02/27/18 02/27/18 07:00 07:00 07:29 WBC RBC Hgb Hct MCV MCH MCHC RDW Coeff of Mariajose Plt Count Immature Gran % (Auto) Neut % (Auto) Lymph % (Auto) [place] % (Auto) Eos % (Auto) Baso % (Auto) Immature Gran # (Auto) Neut # (Auto) Lymph # (Auto) [place] # (Auto) Eos # (Auto) Baso # (Auto) D-Dimer (Manual) 346.63 Puncture Site Lr O2 Saturation 96.0 ABG pH 7.443 ABG pCO2 35.0 ABG pO2 78.0 L ABG HCO3 24.0 ABG Total CO2 25 ABG Base Excess 0 Rashaad Test + FiO2 % 21.0 Sodium Potassium Chloride Carbon Dioxide Anion Gap BUN Creatinine Estimated GFR (MDRD) BUN/Creatinine Ratio Glucose Lactic Acid Calcium Total Bilirubin AST ALT Alkaline Phosphatase Total Creatine Kinase Troponin I Total Protein Albumin Globulin Albumin/Globulin Ratio Procalcitonin < 0.05 Orders Category Date Time Status ADMIT PATIENT INPATIENT .TO [facility] (MONITORED BED) ADMISSION 02/27/18 08: 22 Active ABG DRAW REQUEST Routine CARDIO 02/27/18 07:29 Completed EKG-(ED ONLY) Stat CARDIO 02/27/18 06:23 Completed EKG-(ED ONLY) Stat CARDIO 02/27/18 07:51 Completed EKG-(IP & OP ONLY) DAILY CARDIO 02/28/18 06:00 Completed ACTIVITY .Complete BR CARE 02/27/18 07:53 Active INTAKE & OUTPUT Q8HR CARE 02/27/18 07:53 Active TELEMETRY MONITORING TELE CARE 02/27/18 08:23 Active VITAL SIGNS Q8HR CARE 02/27/18 07:53 Completed REGULAR DIET DIETARY 02/27/18 Breakfast Completed ED RN TRANSPLANT APPLIED .ONCE EMERGENCY 02/27/18 06:44 Active ED IV/MEDIPORT/POWERPORT .ONCE EMERGENCY 02/27/18 06:44 Active ABG Stat LAB 02/27/18 07:29 Completed CBC W/ AUTO DIFF DAILY@0600 LAB 02/28/18 07:04 Completed CBC W/ AUTO DIFF Stat LAB 02/27/18 07:00 Completed COMPREHENSIVE METABOLIC PANEL DAILY@0600 LAB 02/28/18 05:00 Completed COMPREHENSIVE METABOLIC PANEL Stat LAB 02/27/18 07:00 Completed CREATINE KINASE Q8H LAB 02/27/18 14:00 Completed CREATINE KINASE Q8H LAB 02/27/18 22:01 Completed CREATINE KINASE Stat LAB 02/27/18 07:00 Completed D-DIMER Stat LAB 02/27/18 07:00 Completed LACTIC ACID Stat LAB 02/27/18 07:00 Completed PROCALCITONIN Stat LAB 02/27/18 07:00 Completed PT WITH INR DAILY@0600 LAB 02/28/18 05:00 Completed TROPONIN I Q8H LAB 02/27/18 14:00 Completed TROPONIN I Q8H LAB 02/27/18 22:01 Completed TROPONIN I Stat LAB 02/27/18 07:00 Completed 0.9 % Sodium Chloride [Saline Flush] MEDS 02/27/18 06:44 Discontinued 1 syr IVF PRN PRN Acetaminophen [Tylenol] MEDS 02/27/18 08:00 Discontinued 1,000 mg PO Q12H Acetaminophen [Tylenol] MEDS 02/27/18 09:00 Discontinued 1,000 mg PO Q12HR Albuterol Sulfate 0.083% Neb [Albuterol 0.083% Neb] MEDS 02/27/18 07:52 Discontinued 1 vial NEB RTQID PRN Aspirin [Aspirin Chewable] MEDS 02/27/18 06:44 Discontinued 324 mg PO ONCE STA Losartan/Hydrochlorothiazide [Hyzaar 50-12.5 mg Tab] MEDS 02/27/18 09:00 Discontinued 2 tab PO DAILY Mag-Al Plus//Lidocaine [Gi Cocktail] MEDS 02/27/18 06:44 Discontinued 30 ml PO ONCE STA Nitroglycerin [Nitrostat] MEDS 02/27/18 06:46 Discontinued 0.4 mg SL ONCE STA Rivaroxaban [Xarelto] MEDS 02/27/18 21:00 Discontinued 20 mg PO BEDTIME Sodium Chloride 0.9% [Sodium Chloride] 1,000 ml MEDS 02/27/18 06:44 Discontinued IV 75 mls/hr Sodium Chloride 0.9% [Sodium Chloride] 1,000 ml MEDS 02/27/18 08:00 Discontinued IV 75 mls/hr Sotalol HCl [Betapace] MEDS 02/27/18 09:00 Discontinued 40 mg PO DAILY CHEST, 1V AP ONLY Stat RADS 02/27/18 06:44 Completed Medications Discontinued Medications Generic Name Dose Route Start Last Admin Trade Name Freq PRN Reason Stop Dose Admin Acetaminophen 1,000 mg 02/27/18 08:00 02/27/18 13:18 Tylenol PO Not Given Q12H CATRINA Acetaminophen 1,000 mg 02/27/18 09:00 02/28/18 09:01 Tylenol PO 1,000 mg Q12HR CATRINA Administration Al Hydroxide/Mg Hydroxide 30 ml 02/27/18 06:44 02/27/18 06:59 Gi Cocktail PO 02/27/18 06:45 30 ml ONCE STA Administration Al Hydroxide/Mg Hydroxide 30 ml 02/27/18 13:55 02/27/18 14:10 Gi Cocktail PO 02/27/18 13:56 Not Given ONCE STA Albuterol Sulfate 1 vial 02/27/18 07:52 Albuterol 0.083% [facility] NEB RTQID PRN Bronchospasm Aspirin 324 mg 02/27/18 06:44 02/27/18 07:00 Aspirin Chewable PO 02/27/18 06:45 324 mg ONCE STA Administration HCTZ/Losartan Potassium 2 tab 02/27/18 09:00 02/28/18 09:00 Hyzaar 50-12.5 Mg Tab PO 2 tab DAILY CATRINA Administration Sodium Chloride 1,000 mls @ 75 mls/hr 02/27/18 06:44 02/27/18 07:17 Sodium Chloride IV 02/27/18 20:03 75 mls/hr .[id number] STA Administration Sodium Chloride 1,000 mls @ 75 mls/hr 02/27/18 08:00 02/28/18 10:02 Sodium Chloride IV 75 mls/hr .[id number] CATRINA Administration Nitroglycerin 0.4 mg 02/27/18 06:46 02/27/18 07:00 Nitrostat SL 02/27/18 06:47 0.4 mg ONCE STA Administration Rivaroxaban 20 mg 02/27/18 21:00 02/27/18 20:32 Xarelto PO 20 mg BEDTIME CATRINA Administration Sodium Chloride 1 syr 02/27/18 06:44 02/27/18 07:17 Saline Flush IVF 1 syr PRN PRN Administration To flush IV Sotalol HCl 40 mg 02/27/18 09:00 02/28/18 09:00 Betapace PO 40 mg DAILY CATRINA Administration Vital Signs: Temp Pulse Resp BP Pulse Ox 02/27/18 05:55 98.8 F 102 H 28 H 156/94 H 96 ALIYAH Risk Score Age >/= 65: Yes >/= 3 CAD Risk Factors: Yes Known CAD (Stenosis >/= 50%): Yes ASA Use in Past 7 Days: No Severe Angina (>/= 2 episodes in 24 hours): Yes EKG ST Changes >/= 0.5mm: No ALIYAH Total Score: 4 ALIYAH Risk Score: Risk Score Odds of by 30D 0 0.1 (0.1-0.2) 1 0.3 (0.2-0.3) 2 0.4 (0.3-0.5) 3 0.7 (0.6-0.9) 4 1.2 (1.0-1.5) 5 2.2 (1.9-2.6) 6 3.0 (2.5-3.6) 7 4.8 (3.8-6.1) Departure - Departure Time of Disposition: 09:02 Disposition: ADMITTED INPATIENT Discharge Problem: Chest pain Condition: Stable Pt referred to PMD for follow-up: No IPMP verified?: No Allergies/Adverse Reactions: Allergies No Known Allergies Allergy (Verified 02/27/18 06:07) Home Medications: Ambulatory Orders Losartan/Hydrochlorothiazide [Losartan-Hctz 100-25 mg Tab] 1 tab PO DAILY Rivaroxaban [Xarelto] 20 mg PO BEDTIME 08/15/13 Sotalol HCl [Sotalol] 40 mg PO DAILY 08/15/13 Acetaminophen [Tylenol] 1,000 mg PO Q12H 11/02/17
[2018-02-27] MEDS ORDERED: ASPIRIN CHEWABLE PO STA (06:44)
[2018-02-27] MEDS ORDERED: SODIUM CHLORIDE 1,000 ML IV STA (06:44)
[2018-02-27] MEDS ORDERED: GI COCKTAIL PO STA ×2 (06:44→13:55)
[2018-02-27] MEDS ORDERED: NITROSTAT SL STA (06:46)
--- NOTE | 2018-02-27 07:30 | DI ---
EXAM: Chest one view HISTORY: Chest pain COMPARISON: 11/02/2017 TECHNIQUE: Single view of the chest was performed FINDINGS: Widened cardiomediastinal silhouette may be accentuated by technique. No definite consol idation or pleural effusion. No visible pneumothorax. Cervical spinal fusion hardware. IMPRESSION: Widened cardiomediastinal silhouette, may be accentuated by technique. Recommend correl ation with CT. Finding called to Dr. Hollingsworth 7:25 A.M. 02/27/2018
[2018-02-27] MEDS ORDERED: ALBUTEROL 0.083% NEB NEB PRN (07:52)
[2018-02-27] MEDS ORDERED: TYLENOL PO SCH (08:00)
[2018-02-27] MEDS ORDERED: NON-FORMULARY MEDICATION (Losartan/Hydrochlorothiazide [Losartan-Hctz 100-25 Mg Tab] 1 TAB PO SCH (09:00)
[2018-02-27 09:53] VITALS: BMI 48.4
[2018-02-27] MEDS: HYZAAR 50-12.5 MG TAB PO SCH (09:58)
[2018-02-27] MEDS: BETAPACE PO SCH (09:58)
[2018-02-27] MEDS: TYLENOL PO SCH ×2 (09:59→20:32)
[2018-02-27] MEDS: SODIUM CHLORIDE 1,000 ML IV SCH ×2 (10:00→20:39)
[2018-02-27] MEDS ORDERED: GI COCKTAIL PO ONE (13:57)
[2018-02-27] MEDS ORDERED: XARELTO PO SCH (21:00)
[2018-02-27] MEDS ORDERED: NON-FORMULARY MEDICATION (Rivaroxaban [Xarelto] 20 MG) PO SCH (21:00)
[2018-02-28] MEDS: BETAPACE PO SCH (09:00)
[2018-02-28] MEDS: HYZAAR 50-12.5 MG TAB PO SCH (09:00)
[2018-02-28] MEDS: TYLENOL PO SCH (09:01)
--- NOTE | 2018-02-28 09:02 | PCM.PROG ---
Attending Provider: ATTENDING PROVIDER: Dr. SUKHWINDER STOUT DATE OF SERVICE: 02/28/18 SUBJECTIVE: This 78 year old WHITE/ M was hospitalized 02/27/18 with chest pain, more pleuritic in type. So far, no evidence of acute myocardial event, no chest pain anymore. The patient has been up and about. No symptoms of CHF or CAD. REVIEW OF SYSTEMS: CONSTITUTIONAL: No night sweats. No fatigue, malaise, lethargy. No fever or chills. HEENT: Eyes: No visual changes. No eye pain. No eye discharge. ENT: No runny nose. No epistaxis. No sinus pain. No odynophagia. No congestion. RESPIRATORY: No cough, no congestion. No hemoptysis. No shortness of breath. CARDIOVASCULAR: No angina symptoms. No CHF symptoms. No atypical chest pain for CAD. No palpitations. No orthopnea.. GASTROINTESTINAL: No abdominal pain. No nausea or vomiting. No diarrhea or constipation. No hematemesis. No hematochezia. GENITOURINARY: No urgency. No frequency. No dysuria. No hematuria. No obstructive symptoms. No discharge. No pain. No significant abnormal bleeding. MUSCULOSKELETAL: No musculoskeletal pain; no joint swelling. NEUROLOGICAL: Awake, alert, oriented to time, place and person. No headache. No neck pain. No syncope. No seizures. No dizziness. PSYCHIATRIC: Not anxious. No depression. No suicidal thoughts. No homicidal thoughts. SKIN: No rash. No lesions. No wounds. ENDOCRINE: No unexplained weight loss. No weight gain. HEMATOLOGIC/LYMPHATIC: No anemia. No purpura. No petechiae. No prolonged or excessive bleeding. No palpable lymph nodes. PHYSICAL EXAMINATION: GENERAL: The patient is awake, alert and oriented, sitting on side of bed in no distress. VITAL SIGNS: Temperature 97.6 F, Pulse 70, Respiratory Rate 16, BP 118/70, Pulse Ox 97% HEENT: Head normocephalic, atraumatic. Eyes: Extraocular muscles are intact. Pupils are equal, round and reactive to light and accommodation. Ears: No lesions. Nose appeared normal. Throat: No exudate or erythema. NECK: Supple. No JVD, no carotid bruit. No lymphadenopathy or thyromegaly. LUNGS: Decreased breath sounds. Clear to auscultation. Percussion note normal. Chest symmetrical. HEART: S1, S2, no S3. No murmurs. No cyanosis or clubbing. No ascites. Pulses: Dorsalis pedis and posterior tibial pulses +1 to +2 both sides. ABDOMEN: Soft. Non-tender. Bowel sounds active. No CVA tenderness. No mass felt. EXTREMITIES: No edema. Full range of motion of all extremities, equal. NEUROLOGIC: No focal deficit. Cranial nerves II through XII are grossly intact. No headache, no double vision or headache. SKIN: Warm and dry. Intact. Turgor-normal. LYMPHATIC: No palpable lymph nodes/no lymphedema. MUSCULOSKELETAL: Normal joints with no swelling. Muscle tone is normal. LAB REVIEW: 02/28/18 07:04 02/28/18 05:00 02/28/18 07:04: B-Natriuretic Peptide 149 H 02/28/18 07:04: WBC 8.38, RBC 4.70, Hgb 14.8, Hct 43.9, MCV 93.4, MCH 31.5 H, MCHC 33.7, RDW Coeff of Mariajose 12.7, Plt Count 182, Immature Gran % (Auto) 0.2, Neut % (Auto) 56.9, Lymph % (Auto) 26.5, [place] % (Auto) 13.5 H, Eos % (Auto) 2.1 , Baso % (Auto) 0.8, Immature Gran # (Auto) 0.0, Neut # (Auto) 4.8, Lymph # ( Auto) 2.2, [place] # (Auto) 1.1, Eos # (Auto) 0.2, Baso # (Auto) 0.1 02/28/18 05:00: Sodium 139, Potassium 3.7, Chloride 107, Carbon Dioxide 23, Anion Gap 12.7, BUN 14, Creatinine 0.78, Estimated GFR (MDRD) 97.00, BUN/ Creatinine Ratio 17.94, Glucose 103, Calcium 8.8, Total Bilirubin 1.7 H, AST 20 , ALT 17, Alkaline Phosphatase 42 L, Total Protein 6.5, Albumin 3.1 L, Globulin 3.4, Albumin/Globulin Ratio 0.91 02/28/18 05:00: PT 13.8 H, INR 1.39 02/27/18 22:01: Total Creatine Kinase 72, Troponin I < 0.0100 02/27/18 14:00: Total Creatine Kinase 73, Troponin I < 0.0100 02/27/18 07:29: Puncture Site Lr, O2 Saturation 96.0, ABG pH 7.443, ABG pCO2 35.0, ABG pO2 78.0 L, ABG HCO3 24.0, ABG Total CO2 25, ABG Base Excess 0, Rashaad Test +, FiO2 % 21.0 02/27/18 07:00: D-Dimer (Manual) 346.63 ASSESSMENT: 1. Chest pain seems to be noncardiac. 2. Multiple risk factors for CAD with history of CAD. 3. Massive obesity, BMI 48. PLAN: 1. Counseling for diet done. 2. CT scan of chest if not already done. 3. Echocardiogram today. 4. Dobutamine Sestamibi to be scheduled as outpatient. Plan and coordination of the patient's care discussed in the presence of Machine Wood Sander and nurse. CONDITION: Stable SCRIBED BY: MAGDI COFFMAN [employer] scribed while in presence of service performed by Dr. SUKHWINDER STOUT on 02/28/18 ([id number])
--- NOTE | 2018-02-28 09:38 | HP ---
DATE OF SERVICE: 02/27/18 REASON FOR HOSPITALIZATION/HISTORY OF PRESENT ILLNESS: 78 year old white male who presented to the ER stating that he started with chest pain at 11pm last night. He described this pain as sharp. There is no trauma. He has history of atrial fibrillation. PAST MEDICAL HISTORY: Diabetes Mellitus type 2 Right sciatica Atrial fibrillation/Flutter on Xarelto Obesity Metabolic syndrome Coronary artery disease with angioplasty in 2000 LVH Hypertension Sleep apnea on CPAP PAST SURGICAL HISTORY: Status post bilateral total knee replacement by Dr. Colon Status post back surgery Angioplasty in 2000 REVIEW OF SYSTEMS: CONSTITUTIONAL: No night sweats. No fatigue, malaise, lethargy. No fever or chills. HEENT: Eyes: No visual changes. No eye pain. No eye discharge. ENT: No runny nose. No epistaxis. No sinus pain. No sore throat. No odynophagia. No ear pain. No congestion. RESPIRATORY: Cough, no congestion. No hemoptysis. Shortness of breath. CARDIOVASCULAR: No angina symptoms. No CHF symptoms. Atypical chest pain for CAD. No palpitations. No PND. No orthopnea. GASTROINTESTINAL: No abdominal pain. No nausea or vomiting. No diarrhea or constipation. No hematemesis. No hematochezia. GENITOURINARY: No urgency. No frequency. No dysuria. No hematuria. No obstructive symptoms. No discharge. No pain. No significant abnormal bleeding. MUSCULOSKELETAL: No musculoskeletal pain. No joint swelling. No arthritis. NEUROLOGICAL: No headache. No neck pain. No syncope. No seizures. No dizziness. PSYCHIATRIC: Anxious. No depression. No suicidal thoughts. No homicidal thoughts. SKIN: No rash. No lesions. No wounds. ENDOCRINE: No unexplained weight loss. No weight gain. HEMATOLOGIC/LYMPHATIC: No anemia. No purpura. No petechiae. No prolonged or excessive bleeding. No palpable lymph nodes. PERSONAL/FAMILY/SOCIAL HISTORY: The patient is a former smoker, He is and lives with his . No alcohol or illicit drug use. He performs all ADL's MEDICATIONS: Sotalol 40mg PO daily Losartan 100-25 PO daily Xarelto 20mg PO bedtime Tylenol 1000mg PO Q 12 hours. ALLERGIES: No known allergies PHYSICAL EXAMINATION: VITAL SIGNS: Temperature 98.8, heart rate 102, respiratory rate 28, blood pressure 156/94 and pulse ox 96% on room air. HEENT: Head normocephalic, atraumatic. Eyes: Extraocular muscles are intact. Pupils are equal, round and reactive to light and accommodation. Ears: No lesions. Nose appeared normal. Throat: No exudate or erythema. NECK: Supple. No JVD, no carotid bruit. No lymphadenopathy or thyromegaly. LUNGS: Decreased breath sounds equal and clear to auscultation. Percussion note normal. Chest symmetrical. HEART: S1, S2, no S3. No murmurs. Irregular consistent with atrial fibrillation. No cyanosis or clubbing. No ascites. Pulses: Dorsalis pedis and posterior tibial pulses +1 to +2 bilaterally. ABDOMEN: Soft. Nontender. Bowel sounds active. No CVA tenderness. No mass felt. EXTREMITIES: Trace edema. Full range of motion of all extremities, equal. NEUROLOGIC: No focal deficit. Cranial nerves II through XII are grossly intact. No headache, no double vision or headache. SKIN: Not dry. Intact. Turgor - normal. LYMPHATIC: No palpable lymph nodes/no lymphedema. MUSCULOSKELETAL: Normal joints with no swelling. Muscle tone is normal. LABS: WBC 9.54, hgb 16, hct 47.8, plt count 214, sodium 139, potassium 4.2, BUN 13, creatinine 0.88, glucose 121, lactic acid 17.2, AST 31, ALT 25, Alkaline phosphatase 50, total CK 97, Troponin less than 0.01, total Protein 7.9, Procalcitonin less than 0.05. ABG on room air O2 96, pH 7.443, pCO2 35, pO2 78, Bicarb 24, total Co2 25. D-Dimer 346. Chest x-ray shows widened cardiomediastinal silhouette maybe accentuated by technique. Recommend correlation with CT. ASSESSMENT: 1. Chest pain 2. Atrial fibrillation 3. Hypertension 4. LVH 5. Coronary artery disease 6. Diabetes Mellitus type 2 7. Obesity 8. Metabolic syndrome PLAN: 1. Routine telemetry orders 2. CBC and CMP daily 3. Continue home medication 4. Nitroglycerin 0.4mg PRN for chest pain 5. GI cocktail for possible GERD 6. Normal saline at 75cc an hour 7. Will CT of the chest in the morning 8. Low Sodium diabetic diet Will follow closely. TIME SPENT: More than 70 minutes. MTDD
[2018-02-28] MEDS: SODIUM CHLORIDE 1,000 ML IV SCH (10:02)
--- NOTE | 2018-02-28 10:48 | CT ---
Exam: CTA chest with intravenous contrast, PE protocol with 3-D MIP reformatted images. Comparison: None available. Reason for exam: D-dimer, shortness of breath chest pain. FINDINGS: Timing of the contrast bolus is not optimized for evaluation of the pulmonary arterial vas culature. The majority of the contrast is seen in the superior vena cava and proximal vasculature. . No pneumothorax, pleural effusion, or focal consolidation. The heart is prominent in size. The aorta is normal in course and caliber. Hypodensities seen in the partially imaged left renal collecting system. Small nodules seen adjacent to the pancreatic tail presumably a splenule. No main, proximal, or segmental pulmonary arterial filling defect is seen. No suspicious appearing o steoblastic or osteolytic lesions. Degenerative disease is seen in the thoracic spine with osteophyte formation. Operative changes are seen after anterior cervical discectomy and fusion. Impression: 1. Timing of the contrast bolus is not optimized for evaluation of the distal pulmonary arterial vasc ulature as a majority of the contrast is seen in the superior vena cava. No saddle, main, or proxima l pulmonary emboli are seen. If clinical concern exists, repeat CTA of the chest with intravenous con trast versus VQ scan may be performed for further characterization. 2. No pneumothorax, pleural effusion, or focal consolidation. 3. Cardiomegaly. 4. Left renal hypodensities incompletely characterized on this exam
[2018-02-28 15:12] VITALS: BP 128/86; TEMP 97.8
--- NOTE | 2018-02-28 20:45 | US ---
EXAM: Bilateral carotid artery Doppler History: Weakness and lightheadedness, headaches. Technique. Multiple sonographic images through the bilateral internal carotid arteries were obtained. Color duplex Doppler was used to interrogate vascular flow. Findings: The right ICA peak systolic velocity is within normal limits measuring 0.5 meters per second. The rig ht ICA/cca PSV ratio is normal at 0.7. The right vertebral artery is patent and demonstrates antegra de flow. Rosas scale images demonstrate mild plaque buildup within the right internal carotid artery. The left ICA peak systolic velocity is within normal limits measuring 0.6 meters per second. The lef t ICA/cca PSV ratio is normal at 1.1. The left vertebral artery is patent and demonstrates antegrade flow. Rosas scale images demonstrate mild plaque buildup within the left internal carotid artery. Impression: No significant hemodynamic stenosis of the bilateral internal carotid arteries.
--- NOTE | 2018-03-01 08:23 | ECHO2D ---
Date of Exam: 02/28/18 Ordering Physician: DR. SUKHWINDER STOUT Room #: [id number] Reason for Echo: CHEST PAIN M-Mode Normal Adult Results LV Dimensions Normal Adult Results AoV Opening excursions >1.6 >1.6 LVEDD-base- 3.5-5.8 4.7 Ao root dimensions 2.0-3.7 3.8 LVESD-base- 3.1-4.6 L. Atrium dimensions 1.9-3.8 5.2 Post. Wall thickness 0.8-1.1 1.4 IV septum (thickness) 0.7-1.2 1.4 Post. Wall excursion 0.72-1.3 NORMAL Septal motion NORMAL Systolic motion R. Ventricular cavity 1.5-2.0 NORMAL LVEF 60% 72% Paradoxical septal wall motion NORMAL 2-D : 2-D M Mode Echocardiogram was performed using apical four chamber and left parasternal long and short axis views. Mitral, tricuspid and aortic valves appear to be normal. Contractility of the left ventricle seems to be normal, so is the cavity size. Enlarged left atrial cavity. Aortic root appears to be normal. There is no pericardial effusion. There is no thrombus noted in the left ventricular or left aortic cavity. No mitral valve prolapse noted. M-MODE: MV: NORMAL AV: NORMAL TV: NORMAL PV: CHAMBER SIZE: ENLARGED LEFT ATRIAL CAVITY WALL MOTION: NORMAL PERICARDIUM: NORMAL INTERPRETATION: 1. LEFT VENTRICULAR HYPERTROPHY WITH ENLARGED LEFT ATRIAL CAVITY 2. NORMAL LEFT VENTRICULAR CONTRACTILITY 3. NORMAL VALVES MTDD
--- NOTE | 2018-03-01 08:34 | PN ---
DATE OF SERVICE: 02/27/18 SUBJECTIVE: The patient was hospitalized today as he came to the emergency room with chest pain. The patient's chest pain was like a heaviness more so when he sits up and takes a deep breath. He was unable to breathe deep and was short of breath. Started probably 12 hours prior to hospitalization. No sweating. REVIEW OF SYSTEMS: CONSTITUTIONAL: No night sweats. No fatigue, malaise, lethargy. No fever or chills. HEENT: Eyes: No visual changes. No eye pain. No eye discharge. ENT: No runny nose. No epistaxis. No sinus pain. No sore throat. No odynophagia. No congestion. RESPIRATORY: No cough, no congestion. No hemoptysis. No shortness of breath. CARDIOVASCULAR: No angina symptoms. No CHF symptoms. No atypical chest pain for CAD. No palpitations. No orthopnea. GASTROINTESTINAL: No abdominal pain. No nausea or vomiting. No diarrhea or constipation. No hematemesis. No hematochezia. GENITOURINARY: No urgency. No frequency. No dysuria. No hematuria. No obstructive symptoms. No discharge. No pain. No significant abnormal bleeding. MUSCULOSKELETAL: No musculoskeletal pain; no joint swelling. NEUROLOGICAL: No headache. No neck pain. No syncope. No seizures. No dizziness. PSYCHIATRIC: Not anxious. No depression. No suicidal thoughts. No homicidal thoughts. SKIN: No rash. No lesions. No wounds. ENDOCRINE: No unexplained weight loss. No weight gain. HEMATOLOGIC/LYMPHATIC: No anemia. No purpura. No petechiae. No prolonged or excessive bleeding. No palpable lymph nodes. PHYSICAL EXAMINATION: HEENT: Head normocephalic, atraumatic. Eyes: Extraocular muscles are intact. Pupils are equal, round and reactive to light and accommodation. Ears: No lesions. Nose appeared normal. Throat: No exudate or erythema. NECK: Supple. No JVD, no carotid bruit. No lymphadenopathy or thyromegaly. LUNGS: Diminished air entry throughout with no practical wheeze. Clear to auscultation. Percussion note normal. Chest symmetrical. Increased AP diameter of the chest. HEART: S1, S2, no S3. No murmurs. No cyanosis or clubbing. No ascites. Pulses: Dorsalis pedis and posterior tibial pulses +1 to +2 both sides. ABDOMEN: Protuberant. Soft. Nontender. Bowel sounds active. No CVA tenderness. No mass felt. EXTREMITIES: Trace edema. Full range of motion of all extremities, equal. NEUROLOGIC: No focal deficit. Cranial nerves II through XII are grossly intact. No headache, no double vision or headache. SKIN: Not dry. Intact. Turgor - normal. LYMPHATIC: No palpable lymph nodes/no lymphedema. MUSCULOSKELETAL: Normal joints with no swelling. Muscle tone is normal. LABS: EKG shows atrial fibrillation. Ventricular response is normal. No acute changes. Cardiac markers are negative. D-Dimer was elevated so the patient ended up with pulmonary embolism protocol CT scan which was negative. ASSESSMENT: 1. Chest pain, seems to be noncardiac, nonexertional 2. History of coronary artery disease 3. Sleep apnea on CPAP 4. Pleuritic type pain could be from bronchitis 5. Chronic lung disease with asthma 6. Diabetes Mellitus 7. Morbid obesity 8. Hypertension 9. Dyslipidemia 10.History of coronary artery disease with stent, 1999 PLAN: 1. Continue telemetry 2. Continue to monitor ABG and EKG 3. Cardiac markers 4. Will do echo and Dobutamine stress echo 5. PFT CONDITION:Stable TIME SPENT: More than 30 minutes. Plan and coordination of the patient's care discussed in the presence of nurse. ZHEN
--- NOTE | 2018-03-01 08:52 | DS ---
DATE OF SERVICE: 02/28/18 FINAL DIAGNOSIS: 1. Chest pain, pleuritic 2. Coronary artery disease with history of stent 3. Chronic lung disease 4. Massive obesity 5. Atrial fibrillation 6. Diabetes Mellitus 7. Hypertension 8. Dyslipidemia DISCHARGE INSTRUCTIONS: The patient is advised to take the same medication as before. Continue all the home medications. The patient is scheduled for Dobutamine stress echo sestamibi on Monday that is day after tomorrow. Instruction to come back in 5-7 days. MEDICATIONS AT DISCHARGE: Hyzaar Xarelto Sotalol Tylenol NEW PRESCRIPTIONS: None. DIET INSTRUCTIONS: As tolerated ACTIVITY: As tolerated DISEASE SPECIFIC EDUCATION: Appointments Chest pain HOSPITAL COURSE: 78 year old white male hospitalized with chest pain, the patient's chest pain with equivocal and had heaviness but more when he takes a deep breath with sharp feeling, shortness of breath. The patient was given Toradol, steroids, and simple analgesics and his condition improved. The second day the patient's chest pain was practically gone. His cardiac markers are negative. EKG showed atrial fibrillation with no acute changes. Echo showed normal LV contractility with normal ejection fraction. LVH with enlarged LA cavity. His telemetry did not show any ST-T wave change. The patient has been scheduled for Dobutamine stress echo sestamibi. The patient is noncompliant of lifestyle. His morbidly obese weighs 300 pounds. On discharge hgb 16, hct 47, WBC 9,500 normal differential, creatinine 0.7, BUN 14, potassium 3.7. CONDITION: Stable. TIME SPENT: More than 60 minutes. [facility]
--- NOTE | 2018-03-01 08:53 | PN ---
02/27/18: Level 5 02/28/18: D as in discharge MTDD
== END 2018-02-28 16:52 | disposition home or self-care (01) | DRG 303 ==
LOC: ED 05:54 → MEDSURG B 08:34
PROVIDERS: ADMIT Internal Medicine; ATTEND Internal Medicine
DX: I25.10 Atherosclerotic heart disease of native coronary artery without angina pectoris (principal); Z68.42 Body mass index [BMI] 45.0-49.9, adult; I10 Essential (primary) hypertension; I48.91 Unspecified atrial fibrillation; R06.02 Shortness of breath; E11.9 Type 2 diabetes mellitus without complications; E88.81 Metabolic syndrome and other insulin resistance; J98.4 Other disorders of lung; E78.5 Hyperlipidemia, unspecified; E66.01 Morbid (severe) obesity due to excess calories; F41.9 Anxiety disorder, unspecified; Z79.01 Long term (current) use of anticoagulants
CPT/HCPCS: 36415; 80053; 82550; 82803; 83605; 83880; 84145; 84484; 85025; 85379; 85610; 93005; 93010; 99284

== ENCOUNTER 2018-03-02 06:28 | Outpatient (CLI) | payer OTHER ==
[2018-03-02] MEDS ORDERED: ATROPINE SULFATE PFS ONE (06:56)
[2018-03-02] MEDS ORDERED: DOBUTAMINE 250 ML IV ONE (06:57)
--- NOTE | 2018-03-02 10:16 | NM ---
EXAM: Myocardial perfusion imaging HISTORY: Chest pain COMPARISON: None. TECHNIQUE: Patient was injected 3.6 mCi of thallium 201 chloride intravenously while at rest. SPECT imaging of the heart was acquired. Patient was stressed and injected 26.6 millicurie of Tc99m Sestam ibi intravenously. Another SPECT imaging of the heart was acquired. Gated cardiac study was perform ed. FINDINGS: Post stress images demonstrate normal left ventricular cavity size. There is a small focal fixed defect involving the anterior septal segment of the left ventricle. Another small focal area o f reduced perfusion is identified involving inferior apical segment which shows mild reperfusion on d elayed imaging. Left ventricular ejection fraction is 67%. Wall motion could not be evaluated. IMPRESSION: 1. SPECT myocardial imaging demonstrates a small questionable focal area of reversible ischemia invo lving inferior apical segment of the left ventricle. 2. Small focal fixed defect anterior septal segment which could be due to old infarct. 3. Normal left ventricular ejection fraction of 67%.
--- NOTE | 2018-03-02 11:08 | DOBSTECHST ---
Ordering Physician: DR. SUKHWINDER STOUT Date of Test: 03/02/18 Occupation: RETIRED Reason for Examination: CHEST PAIN Height: 66" Weight: 300 LBS Current Medications: HYZAAR, XARELTO, BETAPACE, SOTALOL, LOSARTAN-HCTZ Target Heart Rate: 122/144 S-T Segment Stage Time HR BPM BP mmhg Rhythm +/- Elevation Depression Comments/ Symptoms Control Sitting 64 122/82 A FIB NONE Dobutamine 250mg/D5W 5cmg/KG/mn 10cmg/KG/mn 3:00 88 A FIB NONE 15cmg/KG/mn 2:00 101 A FIB NONE 20cmg/KG/mn 2:00 121 160/84 A FIB NONE 25cmg/KG/mn :41 169 A FIB NONE 30cmg/KG/mn 35cmg/KG/mn 40cmg/KG/mn Time: 4:00 HR B/P Time: 8:00 HR B/P Time: HR B/P Recovery 110 140/90 Recovery 88 126/90 Recovery Total Time: 7:41 Highest Heart Rate reached: 169 Interpretation: 1. TEST NEGATIVE FOR ISCHEMIC ST-T WAVE CHANGES 2. NO CHEST PAIN OR CHEST DISCOMFORT 3. NORMAL LEFT VENTRICULAR CONTRACTILITY--RESTING AND DURING DOBUTAMINE INFUSION SESTAMIBI TO FOLLOW MTDD
--- NOTE | 2018-03-02 11:11 | ECHOSTRESS ---
Date of Exam: 03/02/18 Ordering Physician: DR. SUKHWINDER STOUT Reason for Echo: CHEST PAIN, DOBUTAMINE STRESS TEST--NO ISCHEMIA M-Mode Normal Adult Results LV Dimensions Normal Adult Results AoV Opening excursions >1.6 LVEDD-base- 3.5-5.8 Ao root dimensions 2.0-3.7 LVESD-base- 3.1-4.6 L. Atrium dimensions 1.9-3.8 Post. Wall thickness 0.8-1.1 IV septum (thickness) 0.7-1.2 Post. Wall excursion 0.72-1.3 Septal motion Systolic motion R. Ventricular cavity 1.5-2.0 LVEF 60% Paradoxical septal wall motion 2-D: NORMAL LEFT VENTRICULAR CONTRACTILITY--RESTING AND WITH DOBUTAMINE M-MODE: MV: AV: TV: PV: CHAMBER SIZE: WALL MOTION: NORMAL LEFT VENTRICULAR CONTRACTILITY--RESTING AND WITH DOBUTAMINE PERICARDIUM: INTERPRETATION: 1. NORMAL LEFT VENTRICULAR CONTRACTILITY--RESTING AND WITH DOBUTAMINE MTDD
== END 2018-03-02 06:29 | disposition home or self-care (01) ==
LOC: CAR 06:28
PROVIDERS: ATTEND Internal Medicine
DX: R06.02 Shortness of breath (principal); R07.9 Chest pain, unspecified

== ENCOUNTER 2018-06-11 15:17 | Outpatient (CLI) | END 2018-06-11 15:18 | disposition home or self-care (01) | LOC: CAR 15:17 | PROVIDERS: ATTEND Psychiatry & Neurology Sleep Medicine | DX: G47.33 Obstructive sleep apnea (adult) (pediatric) (principal) | CPT/HCPCS: 95810 ==